=== PATIENT | male | born 1985 | race Caucasian/White ===

== ENCOUNTER → 2019-10-17 11:11 | Outpatient (CLI) | payer OTHER, SELFPAY ==
[2019-10-17 12:39] LABS: Cholesterol 219 mg/dL (200); Glucose 103 mg/dL (74-106); High Density Lipoprotein 33 mg/dL; Triglycerides 628 mg/dL
[2019-10-17 12:42] LABS: Hemoglobin A1c 5.4 % (3.8-5.6)
[2019-10-18 09:29] LABS: LDL, Direct 120295 82 mg/dL (0-99)
== END ==
PROVIDERS: PCP Family Medicine; Visit Provider Family Medicine
DX: R73.01 Impaired fasting glucose (principal); E78.1 Pure hyperglyceridemia
CPT/HCPCS: 36415; 80061; 82947; 83036; 83721

== ENCOUNTER → 2021-02-11 16:19 | Outpatient (CLI) | payer OTHER, SELFPAY ==
--- NOTE | 2021-02-11 16:27 | US_ITS ---
STUDY: SCROTUM ULTRASOUND REASON FOR EXAM: Male, 35 years old. Left testicular mass found on ESSENCE. TECHNIQUE: Ultrasound evaluation of the scrotum was performed with color Doppler and static randolph-scale imaging. COMPARISON: None. FINDINGS: RIGHT TESTICLE INTRATESTICULAR: There is a normal size of the right testicle. The right testicle measures 4.7 x 3.2 x 2.1 cm. There is a homogenous echotexture. There is normal arterial and normal venous vascularity. There is no demonstrated right testicular mass or cyst. EXTRATESTICULAR: The epididymis is normal in size. The epididymis head measures 0.8 x 1.1 x 1.3 cm. There is normal vascularity of the epididymis. There is no demonstrated epididymal cystic structure. There is a small hydrocele. There is no demonstrated varicocele. There is no demonstrated extratesticular mass or cyst. LEFT TESTICLE INTRATESTICULAR: There is a normal size of the left testicle. The left testicle measures 4.7 x 3.1 x 2.1 cm. There is a homogenous echotexture. There is normal arterial and normal venous vascularity. There is no demonstrated left testicular mass or cyst. EXTRATESTICULAR: The epididymis is normal in size. The epididymis head measures 0.9 x 1.3 x 0.8 cm. There is normal vascularity of the epididymis. There is a 4 mm epididymal head cyst. There is a small hydrocele. There are prominent extratesticular veins consistent with a varicocele. There is no demonstrated extratesticular mass or cyst. US/Testicular with Arterial Flow IMPRESSION: 1. Normal testicles. 2. Left epididymal head cyst. The right epididymis is unremarkable. 3. Left varicocele. This is thought to correlate with the palpable mass. 4. Small bilateral hydroceles. Electronically Signed: Lawrence Morel DO at 23:50 EDT Tel [phone], Service support ,
== END ==
PROVIDERS: PCP Family Medicine; Referring Provider Family Medicine; Visit Provider Family Medicine
DX: N50.89 Other specified disorders of the male genital organs (principal); N44.2 Benign cyst of testis; N43.3 Hydrocele, unspecified; I86.1 Scrotal varices
CPT/HCPCS: 76870; 93976

== ENCOUNTER → 2022-11-21 | Outpatient (CLI) | payer BC, SELFPAY ==
[2022-11-21 12:44] LABS: Hemoglobin A1c 6.3 % (3.8-5.6)
[2022-11-21 12:45] LABS: Microalbumin,Random Urine 20.4 mg/L (NO RANGE EST.); Microalbumin:Creatinine Ratio 10.7 mg/g CRE (<30 mg/g CRE)
[2022-11-21 13:24] LABS: ALB/GLOB Ratio 1.1 RATIO (0.9-2.4); AST(SGOT) 56 U/L (15-37); Alanine Aminotransfer ALT/SGPT 119 U/L (16-61); Albumin, Serum 3.8 g/dL (3.2-5.0); Alkaline Phosphatase 127 U/L (45-117); Anion Gap 6 (5-15); BUN 8 mg/dL (7-18); BUN/Creat Ratio 9.3 RATIO (10-20); Calcium,Total 9.2 mg/dL (8.5-10.1); Chloride 103 mmol/L (98-107); Cholesterol 228 mg/dL (200); Creatinine, Serum 0.86 mg/dL (0.70-1.30); EST Glomerular Filtration Rate 108 mL/min (>60); Est Glom Filt Rate - Afr Amer 130 mL/min (>60); Globulin 3.5 g/dL (2.2-4.2); Glucose 155 mg/dL (74-106); High Density Lipoprotein 34 mg/dL; Potassium 3.7 mmol/L (3.5-5.1); Protein, Total 7.3 g/dL (6.4-8.2); Sodium Level 136 mmol/L (136-145); Triglycerides 873 mg/dL
== END | disposition home or self-care (01) ==
PROVIDERS: PCP Family Medicine; Referring Provider Family Medicine; Visit Provider Family Medicine
DX: E11.9 Type 2 diabetes mellitus without complications (principal)
CPT/HCPCS: 36415; 80053; 80061; 82043; 82570; 83036

== ENCOUNTER → 2024-02-09 | Outpatient (CLI) | payer BC, SELFPAY ==
[2024-02-09 17:14] LABS: ALB/GLOB Ratio 1.4 RATIO (0.9-2.4); AST(SGOT) 86 U/L (15-37); Alanine Aminotransfer ALT/SGPT 147 U/L (16-61); Albumin, Serum 4.3 g/dL (3.2-5.0); Alkaline Phosphatase 100 U/L (45-117); Anion Gap 9 (5-15); BUN 12 mg/dL (7-18); BUN/Creat Ratio 15.2 RATIO (10-20); Calcium,Total 9.5 mg/dL (8.5-10.1); Chloride 103 mmol/L (98-107); Cholesterol 159 mg/dL (200); Creatinine, Serum 0.79 mg/dL (0.70-1.30); EST Glomerular Filtration Rate 117 mL/min (>60); Est Glom Filt Rate - Afr Amer 142 mL/min (>60); Globulin 3.1 g/dL (2.2-4.2); Glucose 114 mg/dL (74-106); High Density Lipoprotein 38 mg/dL; Potassium 3.6 mmol/L (3.5-5.1); Protein, Total 7.4 g/dL (6.4-8.2); Sodium Level 137 mmol/L (136-145); Triglycerides 338 mg/dL; Very Low Density Lipoprotein 68 mg/dL (5-40)
[2024-02-09 17:23] LABS: Hemoglobin A1c 7.1 % (3.8-5.6)
[2024-02-09 17:25] LABS: Microalbumin,Random Urine 20.3 mg/L (NO RANGE EST.); Microalbumin:Creatinine Ratio 14.9 mg/g CRE (<30 mg/g CRE)
== END | disposition home or self-care (01) ==
LOC: BFHLAB 14:18
PROVIDERS: PCP Family Medicine; Visit Provider Family Medicine
DX: Z00.00 Encounter for general adult medical examination without abnormal findings (principal); E11.9 Type 2 diabetes mellitus without complications
CPT/HCPCS: 36415; 80053; 80061; 82043; 82570; 83036

== ENCOUNTER → 2024-11-14 | Outpatient (CLI) | payer BC, SELFPAY ==
[2024-11-14 13:08] LABS: Hemoglobin A1c 9.8 % (<=5.6)
[2024-11-14 13:29] LABS: ALB/GLOB Ratio 1.7 RATIO (0.9-2.4); AST(SGOT) 138 U/L (<=37); Alanine Aminotransfer ALT/SGPT 195 U/L (<=46); Albumin, Serum 4.7 g/dL (3.5-5.0); Alkaline Phosphatase 100 U/L (40-129); Anion Gap 13 (5-15); BUN 9 mg/dL (4-19); BUN/Creat Ratio 11.6 RATIO (10-20); Calcium,Total 9.6 mg/dL (7.6-11.0); Carbon Dioxide 22.4 mmol/L (21.0-32.0); Chloride 100 mmol/L (98-108); Cholesterol 183 mg/dL (<=200); Creatinine, Serum 0.79 mg/dL (0.70-1.20); EST Glomerular Filtration Rate 117 (>60); Globulin 2.7 g/dL (2.2-4.2); Glucose 207 mg/dL (70-99); High Density Lipoprotein 31 mg/dL; Low Density Lipoprotein Calc. 46 mg/dL; Potassium 4.1 mmol/L (3.3-5.1); Protein, Total 7.4 g/dL (5.9-8.4); Sodium Level 136 mmol/L (133-145); Total Bilirubin 0.51 mg/dL (0.00-1.30); Triglycerides 531 mg/dL; Very Low Density Lipoprotein 106 mg/dL (5-40); cholesterol:hdl ratio screen 5.85
[2024-11-14 13:47] LABS: Microalbumin,Random Urine 68.3 mg/L (NO RANGE EST.); Microalbumin:Creatinine Ratio 43.8 mg/g CRE
[2024-11-15 12:08] LABS: C-Peptide 5.6 ng/mL (1.1-4.4)
== END | disposition home or self-care (01) ==
LOC: BFHLAB 09:33
PROVIDERS: PCP Family Medicine; Referring Provider Family Medicine; Visit Provider Family Medicine
DX: I10 Essential (primary) hypertension (principal); E11.65 Type 2 diabetes mellitus with hyperglycemia; R74.8 Abnormal levels of other serum enzymes
CPT/HCPCS: 36415; 80053; 80061; 82043; 82570; 83036; 84681

== ENCOUNTER 2024-11-30 18:14 | Emergency (ER) | payer BC, SELFPAY ==
[2024-11-30 18:14] VITALS: BP 162/99; PULSE 103; RESP 18; TEMP 36.4; O2SAT 98; BMI 37.1
--- NOTE | 2024-11-30 18:28 | EX.ED.UPPERE ---
HPI <CARITO Colón - Last Filed: 11/30/24 19:25> History of Present Illness Chief Complaint: Upper Extremity Injury Narrative Narrative: 38-year-old [id number] male presents with a right arm injury. He was installing evelia earlier and felt a pop in his right proximal forearm and has had pain in this area since then. No weakness or numbness or tingling. No direct trauma. PFSH <CARITO Colón - Last Filed: 11/30/24 19:25> PFSH Home Medications ?Medication ?Instructions ?Recorded ?Last Taken ?Type naproxen 500 mg tablet (Naprosyn) 500 mg PO BID PRN pain #20 tabs 11/30/24 Unknown Rx Allergy/AdvReac Type Severity Reaction Status Date / Time No Known Allergies Allergy Verified 11/30/24 18:15 Surgical History (Updated 11/30/24 @ 18:44 by Vicente Chua) History of tonsillectomy Social History Smoking Status: Former smoker ROS <CARITO Colón - Last Filed: 11/30/24 19:25> ROS ED ROS Narrative Neuro: Negative for motor/sensory dysfunction. Skin: Negative for rash, abscess, or wound. Musc: Positive for right forearm pain, swelling. EXAM <CARITO Colón - Last Filed: 11/30/24 19:25> Physical Exam Narrative Exam Narrative: CONST: Patient sitting in no acute distress. EYES: Normal inspection. NECK: Normal inspection. RESP: No respiratory distress, CTAB. CVS: Regular rate and rhythm, no murmur, no gallop. SKIN: Color normal, no rash, warm, dry, intact. EXTREMITIES: Normal appearance of right upper extremity. Tender over the proximal forearm musculature. There is no bruising or deformity. No bony tenderness of the entire right upper extremity. Full range of motion. Some pain with elbow movement. Able to pronate and supinate normally. Normal motor and sensory function in axillary, median, radial, ulnar distributions. 2+ radial pulse and brisk cap refill. NEURO: Alert and answering questions appropriately. PSYCH: Normal affect. Const Vital Signs: 11/30/24 18:14 Temperature 97.5 F L Temperature Source Oral Pulse Rate 103 H Respiratory Rate 18 Blood Pressure 162/99 H Blood Pressure Mean 120 Pulse Ox 98 MDM <CARITO Colón - Last Filed: 11/30/24 19:25> [facility] Narrative Medical decision making narrative: Differential: Muscle tendon strain, fracture I have personally performed a face to face assessment of the patient and have reviewed the ROMINA Note. I performed a substantive portion of the visit including all aspects of the following. My frias findings include: History is [patient presents with pain to his right forearm that occurred today while working installing a floor. Pushed against the wall with the back part of his hand and felt a pop in his proximal medial forearm. Has pain with flexion at the elbow. He is left-hand dominant. No significant medical history.] Exam is [HEENT-PERRLA, EOMI. Cranial nerves II through XII grossly intact. TMs clear. Mucous membranes moist. No adenopathy. Cardiovascular-regular rate and rhythm without murmur or ectopy Lungs-clear to auscultation, chest wall stable without crepitus or subcu emphysema Abdomen-normoactive bowel sounds, soft, nontender, no rebound or rigidity, no peritoneal signs. Extremities-intact ?4. Right upper extremity-patient has tenderness palpation over proximal forearm medially over the area of the insertion of the flexor carpi radialis and the flexor digitorum superficialis as well as the flexor carpi all naris. No significant discomfort with pronation and supination. No pain over the lateral epicondyle or radial head. Neurovascular intact distally.] Medical Decison Making [x-ray of right elbow unremarkable. Will place in a sling and refer to Ortho for follow-up. Suspect likely muscular or tendon injury.] Other additions or changes: [None] <Dr. Isauro Restrepo, - Last Filed: 11/30/24 18:44> [facility] Narrative Medical decision making narrative: I have personally performed a face to face assessment of the patient and have reviewed the ROMINA Note. I performed a substantive portion of the visit including all aspects of the following. My frias findings include: History is [patient presents with pain to his right forearm that occurred today while working installing a floor. Pushed against the wall with the back part of his hand and felt a pop in his proximal medial forearm. Has pain with flexion at the elbow. He is left-hand dominant. No significant medical history.] Exam is [HEENT-PERRLA, EOMI. Cranial nerves II through XII grossly intact. TMs clear. Mucous membranes moist. No adenopathy. Cardiovascular-regular rate and rhythm without murmur or ectopy Lungs-clear to auscultation, chest wall stable without crepitus or subcu emphysema Abdomen-normoactive bowel sounds, soft, nontender, no rebound or rigidity, no peritoneal signs. Extremities-intact ?4. Right upper extremity-patient has tenderness palpation over proximal forearm medially over the area of the insertion of the flexor carpi radialis and the flexor digitorum superficialis as well as the flexor carpi all naris. No significant discomfort with pronation and supination. No pain over the lateral epicondyle or radial head. Neurovascular intact distally.] Medical Decison Making [x-ray of right elbow unremarkable. Will place in a sling and refer to Ortho for follow-up. Suspect likely muscular or tendon injury.] Other additions or changes: [None] Radiography Diagnostic Testing: Three-view x-ray of the right elbow obtained interpreted by myself as no evidence of fracture or dislocation Discharge Plan Triage Chief Complaint: Upper Extremity Injury ED Midlevel Provider: Nicolette Choe ED Provider: Isauro Restrepo Dx/Rx/DC Orders Clinical Impression: Pain in right forearm, Forearm strain Instructions: ED Muscle Strain, Extremity Prescriptions: New naproxen [Naprosyn] 500 mg tablet 500 mg PO BID PRN (Reason: pain) Qty: 20 0RF Stand Alone Forms: Work / School Excuse Primary Care Provider: Dionisio Washington Referrals: Dionisio Washington DO [Primary Care Provider] - Anup Cavanaugh DO [Med Staff - Active Staff] - Activity Restrictions/Additional Instructions: I suspect this is a muscle or tendon strain. You can take acetaminophen every 6 hours and the prescribed naproxen twice daily. If the area in 20 minute sessions throughout the day. You can use the sling but make sure you take your arm out and move it through full range of motion several times a day to avoid stiffness. Follow-up with the orthopedic doctor as needed. Print Language: Greenlandic Disposition Disposition: Home, Self Care Discharge Date/Time: 11/30/24 19:11
--- NOTE | 2024-11-30 18:35 | RAD_ITS ---
PROCEDURE: ELBOW MIN 3 VIEWS 11/30/2024 REASON FOR EXAM: PAIN TECHNIQUE: ELBOW MIN 3 VIEWS COMPARISON: None FINDINGS: No traumatic malalignment. There is a tiny mineralization adjacent to the radial head on the frontal and oblique views no significant joint effusion within the limits of patient positioning on the lateral view. Soft tissues are unremarkable. RAD/Elbow min 3 Views IMPRESSION: Tiny mineralization adjacent to the radial head is nonspecific, possibly sequel a of remote injury and which could be intra-articular. Reading Location: [facility]
[2024-11-30 18:49] VITALS: BP 161/106; PULSE 98; RESP 12; TEMP 36.7; O2SAT 100
--- OUTSIDE RECORDS SUMMARY | 2024-11-30 19:00 | XMS RPT_ITS | CCD ---
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 Dionisio Washington DO Primary Care Provider Dr. Dionisio Washington DO Attending Provider [phone] Dr. Dionisio Washington DO Referring Provider [phone] Dionisio Washington Referring Unavailable Dionisio Washington Attending Unavailable Dionisio Washington Primary Care Unavailable Dionisio Washington Attending Unavailable Dionisio Washington Primary Care Unavailable Problems Problem Classification Problem Date Documented Da te Episodic/Chronic Essential hypertension (1 source) Essential (primary) hypertension; Translations: [Essential (primary) hypertension] Onset: 11-19-2024 Chronic Results Test Name Value Interpretation Reference Range Facility [id number] 11-18-2024 [facility]. COMMENT Normal . [facility] Comment on above: Order Comment: SER/R F [id number] ISLET CELL ANTIBODY Result Comment: Test Ordered: [id number] Antipancreatic Islet Cells Antipancreatic Islet Cells Negative Reference Range: Neg:<1:1 Performed at: - [facility] [id number] Fruit Inspector: Pratibha Fox MD, Phone: [phone] Performed at: - [facility] [address] [id number] Fruit Inspector: Paulo Herman PhD, Phone: [phone] Performed By: #### L 3100.7750, L502.0250, L500.4050, L500.4100, L501.9985, L3410.9992 #### [facility] [address] [place], [place], [id number] C-Peptideon 11-15-2024 C PEPTIDE 5.6 ng/mL High 1.1-4.4 [facility] Comment on above: Result Comment: C-Pe ptide reference interval is for fasting patients. Performed at: [facility] [id number] Fruit Inspector: Paulo Herman PhD, Phone: [phone] Performed By: #### L 3100.7750, L502.0250, L500.4050, L500.4100, L501.9985, L3410.9992 #### [facility] [address] [place], [address] Anion gap in Serum or Plasma Ordered By: Dionisio Washington on 11-14-2024 Anion gap [Moles/Vol] 13 mmol/L 5-15 [facility] BUN/creatinine ratioOrdered By: Dionisio Washington on 11-14-2024 Urea nitrogen/Creatinine [Mass ratio] 11.6 mg/mg 10-20 [facility] Bilirubin, totalOrdered By: Dionisio Washington on 11-14-2024 Bilirubin [Mass/Vol] 0.51 mg/dL 0.00-1.30 [facility] Calculated very low density lipoprotein (VLDL) cholesterol measurementOrdered By: Dionisio Washington on 11-14-2024 Calculated very low density lipoprotein (VLDL) cholesterol measurement 106 mg/dL High 5-40 [facility] Carbon dioxide, total [Moles /volume] in Central venous bloodOrdered By: Dionisio Washington on 11-14-2024 CO2 [Moles/Vol] 22.4 mmol/L 21.0-32.0 [facility] Chloride assayOrdered By: Delicia Washington on 11-14-2024 Chloride [Moles/Vol] 100 mmol/L 98-108 [facility] Comprehensive Metabolic Prof ilon 11-14-2024 Albumin [Mass/Vol] 4.7 g/dL Normal 3.5-5.0 [facility] Comment on above: Performed By: #### L 3100.7750, L502.0250, L500.4050, L500.4100, L501.9985, L3410.9992 #### [facility] [address] [place], [address] Albumin/Globulin [Mass ratio] 1.7 {ratio} Normal 0.9-2.4 [facility] Comment on above: Performed By: #### L 3100.7750, L502.0250, L500.4050, L500.4100, L501.9985, L3410.9992 #### [facility] [address] [place], [address] ALK PHOS 100 U/L Normal 40-129 [facility] Comment on above: Performed By: #### L 3100.7750, L502.0250, L500.4050, L500.4100, L501.9985, L3410.9992 #### [facility] [address] [place], [address] ALT [Catalytic activity/Vol] 195 U/L High <=46 [facility] Comment on above: Performed By: #### L 3100.7750, L502.0250, L500.4050, L500.4100, L501.9985, L3410.9992 #### [facility] [address] [place], [address] AST [Catalytic activity/Vol] 138 U/L High <=37 [facility] Comment on above: Performed By: #### L 3100.7750, L502.0250, L500.4050, L500.4100, L501.9985, L3410.9992 #### [facility] [address] [place], [address] Bilirubin [Mass/Vol] 0.51 mg/dL Normal 0.00-1.30 [facility] Comment on above: Performed By: #### L 3100.7750, L502.0250, L500.4050, L500.4100, L501.9985, L3410.9992 #### [facility] [address] [place], [address] BUN/CRE 11.6 RATIO Normal 10-20 [facility] Comment on above: Performed By: #### L 3100.7750, L502.0250, L500.4050, L500.4100, L501.9985, L3410.9992 #### [facility] [address] [place], [address] Calcium [Mass/Vol] 9.6 mg/dL Normal 7.6-11.0 [facility] Comment on above: Performed By: #### L 3100.7750, L502.0250, L500.4050, L500.4100, L501.9985, L3410.9992 #### [facility] [address] [place], [address] Chloride [Moles/Vol] 100 mmol/L Normal 98-108 [facility] Comment on above: Performed By: #### L 3100.7750, L502.0250, L500.4050, L500.4100, L501.9985, L3410.9992 #### [facility] [address] [place], [address] CO2 [Moles/Vol] 22.4 mmol/L Normal 21.0-32.0 [facility] Comment on above: Performed By: #### L 3100.7750, L502.0250, L500.4050, L500.4100, L501.9985, L3410.9992 #### [facility] [address] [place], [address] Creatinine [Mass/Vol] 0.79 mg/dL Normal 0.70-1.20 [facility] Comment on above: Performed By: #### L 3100.7750, L502.0250, L500.4050, L500.4100, L501.9985, L3410.9992 #### [facility] [address] [place], [place], [phone] (286) GAP 13 Normal 5-15 [facility] Comment on above: Performed By: #### L 3100.7750, L502.0250, L500.4050, L500.4100, L501.9985, L3410.9992 #### [facility] [address] [place], [place], [phone] (017) GFR/1.73 sq M.predicted among non-blacks MDRD (S/P/Bld) [Vol rate/Area] 117 mL/min/{1.73_m2} Normal >60 [facility] Comment on above: Result Comment: mL/m in/1.73m2 CKD-EPI Creatinine Equation (2020) Performed By: #### L 3100.7750, L502.0250, L500.4050, L500.4100, L501.9985, L3410.9992 #### [facility] [address] [place], [place], [id number] (082) Globulin (S) [Mass/Vol] 2.7 g/dL Normal 2.2-4.2 [facility] Comment on above: Performed By: #### L 3100.7750, L502.0250, L500.4050, L500.4100, L501.9985, L3410.9992 #### [facility] [address] [place], [place], [phone] Glucose [Mass/Vol] 207 mg/dL High 70-99 [facility] Comment on above: Performed By: #### L 3100.7750, L502.0250, L500.4050, L500.4100, L501.9985, L3410.9992 #### [facility] [address] [place], [address] Potassium [Moles/Vol] 4.1 mmol/L Normal 3.3-5.1 [facility] Comment on above: Performed By: #### L 3100.7750, L502.0250, L500.4050, L500.4100, L501.9985, L3410.9992 #### [facility] [address] [place], [address] Sodium [Moles/Vol] 136 mmol/L Normal 133-145 [facility] Comment on above: Performed By: #### L 3100.7750, L502.0250, L500.4050, L500.4100, L501.9985, L3410.9992 #### [facility] [address] [place], [address] T PROT 7.4 g/dL Normal 5.9-8.4 [facility] Comment on above: Performed By: #### L 3100.7750, L502.0250, L500.4050, L500.4100, L501.9985, L3410.9992 #### [facility] [address] [place], [address] Urea nitrogen [Mass/Vol] 9 mg/dL Normal 4-19 [facility] Comment on above: Performed By: #### L 3100.7750, L502.0250, L500.4050, L500.4100, L501.9985, L3410.9992 #### [facility] [address] [place], [address] Glomerular filtration rate ( GFR) estimation/1.73 sq m using serum, plasma, or whole bOrdered By: Dionisio Washington on 11-14-2024 GFR/1.73 sq M.predicted among non-blacks MDRD (S/P/Bld) [Vol rate/Area] 117 mL/min/{1.73_m2} >60 [facility] Comment on above: mL/min/1.73m2 CKD-EP I Creatinine Equation (2020) Hemoglobin A1con 11-14-2024 HbA1c (Bld) [Mass fraction] 9.8 % High <=5.6 [facility] Comment on above: Result Comment: Norm al < 5.7 % Prediabetic 5.7 - 6.4 % Diabetic >or= 6.5 % Please note range changes. Performed By: #### L 3100.7750, L502.0250, L500.4050, L500.4100, L501.9985, L3410.9992 #### [facility] [address] [place], [place], [phone] Hemoglobin A1c percentageOrd ered By: Dionisio Washington on 11-14-2024 HbA1c (Bld) [Mass fraction] 9.8 % High <5.7 [facility] Comment on above: Normal < 5.7 % Predi abetic 5.7 - 6.4 % Diabetic >or= 6.5 % Please note range changes. LDL calc ser/plasOrdered By: Dionisio Washington on 11-14-2024 Cholesterol in LDL [Mass/Vol] 46 mg/dL [facility] Comment on above: Ekdlqgvgfh=560-492 m g/dL & Higher Qrxa=897 mg/dL or greater Laboratory - Chemistry and C hemistry - challengeOrdered By: Dionisio Washington on 11-14-2024 AST [Catalytic activity/Vol] 138 U/L High <38 [facility] Lipid Profileon 11-14-2024 CHOL:HDL 5.85 Normal [facility] Comment on above: Performed By: #### L 3100.7750, L502.0250, L500.4050, L500.4100, L501.9985, L3410.9992 #### [facility] [address] [place], [place], [id number] Cholesterol [Mass/Vol] 183 mg/dL Normal <=200 [facility] Comment on above: Result Comment: Chol esterol level, Desirable <200 mg/dL Borderline high cholesterol 200-239 mg/dL High cholesterol >=240 mg/dL Recommendations of the NCEP Adult Treatment Panel for the following risk-cutoff thresholds for the [place] population. Performed By: #### L 3100.7750, L502.0250, L500.4050, L500.4100, L501.9985, L3410.9992 #### [facility] [address] [place], [address] Cholesterol in HDL [Mass/Vol] 31 mg/dL Low [facility] Comment on above: Result Comment: Marisa onal Cholesterol Education Program (NCEP) guidelines: <40 mg/dL: Low HDL-cholesterol (major risk factor for CHD) >= 60 mg/dL: High HDL-cholesterol (negative risk factor for CHD) HDL-cholesterol is affected by a number of factors, e.g. smoking, exercise, hormones, sex and age. Performed By: #### L 3100.7750, L502.0250, L500.4050, L500.4100, L501.9985, L3410.9992 #### [facility] [address] [place], [address] Cholesterol in LDL [Mass/Vol] 46 mg/dL Normal [facility] Comment on above: Result Comment: Bord hlqakf=025-745 mg/dL Higher Ndog=660 mg/dL or greater Performed By: #### L 3100.7750, L502.0250, L500.4050, L500.4100, L501.9985, L3410.9992 #### [facility] [address] [place], [address] Cholesterol in VLDL [Mass/Vol] 106 mg/dL High 5-40 [facility] Comment on above: Performed By: #### L 3100.7750, L502.0250, L500.4050, L500.4100, L501.9985, L3410.9992 #### [facility] [address] [place], [place], [id number] Triglyceride [Mass/Vol] 531 mg/dL High [facility] Comment on above: Result Comment: The drugs N-Acetylcysteine and Metamizole may falsely depress this assay. Normal range: <150 mg/dL Borderline High: 150-199 mg/dL High: 200-499 mg/dL Very High: >500 mg/dL Performed By: #### L 3100.7750, L502.0250, L500.4050, L500.4100, L501.9985, L3410.9992 #### [facility] [address] [place], [place], [id number] Microalb:Creat Ratio,Random URon 11-14-2024 MALB:CREAT 43.8 mg/g CRE Normal [facility] Comment on above: Performed By: #### L 3100.7750, L502.0250, L500.4050, L500.4100, L501.9985, L3410.9992 #### [facility] [address] [place], [place], [phone] MICROALBUMIN,UR 68.3 mg/L Normal NO RANGE EST. [facility] Comment on above: Performed By: #### L 3100.7750, L502.0250, L500.4050, L500.4100, L501.9985, L3410.9992 #### [facility] [address] [place], [place], [phone] Potassium measurement (mass/ volume)Ordered By: Dionisio Washington on 11-14-2024 Potassium (Unsp spec) [Mass/Vol] 4.1 mmol/L 3.3-5.1 [facility] Random urine creatinine dylan urement (mass/volume)Ordered By: Dionisio Washington on 11-14-2024 Creatinine Unsp time (U) [Mass/Vol] 156.00 mg/dL 39.00-259.00 [facility] Screening total cholesterol/ high density lipoprotein (HDL) cholesterol ratioOrdered By: Dionisio Washington on 11-14-2024 Cholesterol.total/Mariela sterol in HDL [Mass ratio] 5.85 {ratio} [facility] Serum creatinine measurement (mass/volume)Ordered By: Dionisio Washington on 11-14-2024 Creatinine [Mass/Vol] 0.79 mg/dL 0.70-1.20 [facility] Serum globulin measurementOr dered By: Dionisio Washington on 11-14-2024 Globulin (S) [Mass/Vol] 2.7 g/dL 2.2-4.2 [facility] Serum glucose measurement (m ass/volume)Ordered By: Dionisio Washington on 11-14-2024 Glucose [Mass/Vol] 207 mg/dL High 70-99 [facility] Serum or plasma alanine bailey otransferase (ALT) measurementOrdered By: Dionisio Washington on 11-14-2024 ALT [Catalytic activity/Vol] 195 U/L High <47 [facility] Serum or plasma albumin dylan urement (mass/volume)Ordered By: Dionisio Washington on 11-14-2024 Albumin [Mass/Vol] 4.7 g/dL 3.5-5.0 [facility] Serum or plasma albumin/glob ulin mass ratioOrdered By: Dionisio Washington on 11-14-2024 Albumin/Globulin [Mass ratio] 1.7 {ratio} 0.9-2.4 [facility] Serum or plasma alkaline joseph sphatase measurementOrdered By: Dionisio Washington on 11-14-2024 ALP [Catalytic activity/Vol] 100 U/L 40-129 [facility] Serum or plasma calcium dylan urement (mass/volume)Ordered By: Dionisio Washington on 11-14-2024 Calcium [Mass/Vol] 9.6 mg/dL 7.6-11.0 [facility] Serum or plasma cholesterol in HDL measurement (mass/volume)Ordered By: Dionisio Washington on 11-14-2024 Cholesterol in HDL [Mass/Vol] 31 mg/dL Low >40 [facility] Comment on above: National Cholesterol Education Program (NCEP) guidelines:<40 mg/dL: Low HDL-cholesterol (major risk factor for CHD)>= 60 mg/dL: High HDL-cholesterol (negative risk factor for CHD)HDL-cholesterol is affected by a number of factors, e.g. smoking, exercise, hormones, sex and age. Serum or plasma cholesterol measurement (mass/volume)Ordered By: Dionisio Washington on 11-14-2024 Cholesterol [Mass/Vol] 183 mg/dL <201 [facility] Comment on above: Cholesterol level, D esirable <200 mg/dLBorderline high cholesterol 200-239 mg/dLHigh cholesterol >=240 mg/dLRecommendations of the NCEP Adult Treatment Panel for the following risk-cutoff thresholds for the [place] population. Serum or plasma urea nitroge n measurement (mass/volume)Ordered By: Dionisio Washington on 11-14-2024 Urea nitrogen [Mass/Vol] 9 mg/dL 4-19 [facility] Sodium levelOrdered By: Dionisio Washington on 11-14-2024 Sodium [Moles/Vol] 136 mmol/L 133-145 [facility] Total proteinOrdered By: Jessika Washington on 11-14-2024 Protein [Mass/Vol] 7.4 g/dL 5.9-8.4 [facility] Triglycerides measurementOrd ered By: Dionisio Washington on 11-14-2024 Triglyceride [Mass/Vol] 531 mg/dL High <199 [facility] Comment on above: The drugs N-Acetylcy steine and Metamizole may falsely depress this assay. Normal range: <150 mg/dLBorderline High: 150-199 mg/dLHigh: 200-499 mg/dLVery High: >500 mg/dL Urine albumin measurement [facility] detection limit of 20 mg/L or less (mass/volume)Ordered By: Dinoisio Washington on 11-14-2024 Albumin DL <= 20 mg/L (U) [Mass/Vol] 68.3 mg/L NO RANGE EST. [facility] Comprehensive Metabolic Prof ilon 02-09-2024 Albumin [Mass/Vol] 4.3 g/dL Normal 3.2-5.0 [facility] Comment on above: Performed By: #### L 502.0250, L500.4050, L501.9985, L500.4100 #### [facility] [place], [address] Albumin/Globulin [Mass ratio] 1.4 {ratio} Normal 0.9-2.4 [facility] Comment on above: Performed By: #### L 502.0250, L500.4050, L501.9985, L500.4100 #### [facility] [address] [place], [address] ALK P 100 U/L Normal 45-117 [facility] Comment on above: Performed By: #### L 502.0250, L500.4050, L501.9985, L500.4100 #### [facility] [address] [place], [address] ALT [Catalytic activity/Vol] 147 U/L High 16-61 [facility] Comment on above: Performed By: #### L 502.0250, L500.4050, L501.9985, L500.4100 #### [facility] [address] [place], [address] AST [Catalytic activity/Vol] 86 U/L High 15-37 [facility] Comment on above: Performed By: #### L 502.0250, L500.4050, L501.9985, L500.4100 #### [facility] [address] [place], [address] Bilirubin [Mass/Vol] 0.80 mg/dL Normal 0.20-1.00 [facility] Comment on above: Result Comment: For patients on eltrombopag therapy, use of Dimension [place] TBIL is not recommended. Performed By: #### L 502.0250, L500.4050, L501.9985, L500.4100 #### [facility] [address] [place], [address] BUN/CRE 15.2 RATIO Normal 10-20 [facility] Comment on above: Performed By: #### L 502.0250, L500.4050, L501.9985, L500.4100 #### [facility] [address] [place], [address] CA,Total 9.5 mg/dL Normal 8.5-10.1 [facility] Comment on above: Performed By: #### L 502.0250, L500.4050, L501.9985, L500.4100 #### [facility] [address] [place], [address] Chloride [Moles/Vol] 103 mmol/L Normal 98-107 [facility] Comment on above: Performed By: #### L 502.0250, L500.4050, L501.9985, L500.4100 #### [facility] [address] [place], [address] CO2 [Moles/Vol] 25.0 mmol/L Normal 21.0-32.0 [facility] Comment on above: Performed By: #### L 502.0250, L500.4050, L501.9985, L500.4100 #### [facility] [address] [place], [address] Creatinine [Mass/Vol] 0.79 mg/dL Normal 0.70-1.30 [facility] Comment on above: Result Comment: The validity of the calculated GFR GFRAA in patients over 70 years has not been determined. Clinical correlation is essential. Performed By: #### L 502.0250, L500.4050, L501.9985, L500.4100 #### [facility] [address] [place], [address] EST GFR - AA 142 mL/min Normal >60 [facility] Comment on above: Result Comment: Afri can [place] GFR Calc Performed By: #### L 502.0250, L500.4050, L501.9985, L500.4100 #### [facility] [address] [place], [address] GAP 9 Normal 5-15 [facility] Comment on above: Performed By: #### L 502.0250, L500.4050, L501.9985, L500.4100 #### [facility] [address] [place], [address] GFR/1.73 sq M.predicted among non-blacks MDRD (S/P/Bld) [Vol rate/Area] 117 mL/min/{1.73_m2} Normal >60 [facility] Comment on above: Result Comment: Non- GFR Calc Performed By: #### L 502.0250, L500.4050, L501.9985, L500.4100 #### [facility] [address] [place], [address] Globulin (S) [Mass/Vol] 3.1 g/dL Normal 2.2-4.2 [facility] Comment on above: Performed By: #### L 502.0250, L500.4050, L501.9985, L500.4100 #### [facility] [address] [place], [address] Glucose [Mass/Vol] 114 mg/dL High 74-106 [facility] Comment on above: Result Comment: Fast ing Glucose result from 100 to 125 mg/dL suggests IMPAIRED HOMEOSTASIS per A.D.A. criteria. Performed By: #### L 502.0250, L500.4050, L501.9985, L500.4100 #### [facility] [address] [place], [address] Potassium [Moles/Vol] 3.6 mmol/L Normal 3.5-5.1 [facility] Comment on above: Performed By: #### L 502.0250, L500.4050, L501.9985, L500.4100 #### [facility] [address] [place], [address] Sodium [Moles/Vol] 137 mmol/L Normal 136-145 [facility] Comment on above: Performed By: #### L 502.0250, L500.4050, L501.9985, L500.4100 #### [facility] [address] [place], [address] T PROT 7.4 g/dL Normal 6.4-8.2 [facility] Comment on above: Performed By: #### L 502.0250, L500.4050, L501.9985, L500.4100 #### [facility] [address] [place], [address] Urea nitrogen [Mass/Vol] 12 mg/dL Normal 7-18 [facility] Comment on above: Performed By: #### L 502.0250, L500.4050, L501.9985, L500.4100 #### [facility] [address] [place], [address] Hemoglobin A1con 02-09-2024 HbA1c (Bld) [Mass fraction] 7.1 % High 3.8-5.6 [facility] Comment on above: Result Comment: Norm al < 5.7 % Prediabetic 5.7 - 6.4 % Diabetic >or= 6.5 % Please note range changes. Performed By: #### L 502.0250, L500.4050, L501.9985, L500.4100 #### [facility] [address] [place], [address] Lipid Profileon 02-09-2024 Cholesterol [Mass/Vol] 159 mg/dL Normal 200 [facility] Comment on above: Result Comment: <200 mg/dL Desirable 200-240 mg/dL Borderline >240 mg/dL High Risk Performed By: #### L 502.0250, L500.4050, L501.9985, L500.4100 #### [facility] [address] [place], [address] Cholesterol in HDL [Mass/Vol] 38 mg/dL Low [facility] Comment on above: Result Comment: The drugs N-Acetylcysteine and Metamizole may falsely depress this assay. Reference Range HDL <40 mg/dL Low HDL Cholesterol HDL >or= 60 mg/dL High HDL Cholesterol Performed By: #### L 502.0250, L500.4050, L501.9985, L500.4100 #### [facility] [address] [place], [address] Cholesterol in LDL [Mass/Vol] 53 mg/dL Normal 0-130 [facility] Comment on above: Performed By: #### L 502.0250, L500.4050, L501.9985, L500.4100 #### [facility] [facility] [address] [place], [address] Cholesterol in VLDL [Mass/Vol] 68 mg/dL High 5-40 [facility] Comment on above: Performed By: #### L 502.0250, L500.4050, L501.9985, L500.4100 #### [facility] [address] [place], [address] Triglyceride [Mass/Vol] 338 mg/dL High [facility] Comment on above: Result Comment: The drugs N-Acetylcysteine and Metamizole may falsely depress this assay. Serum Triglycerides Reference Interval Normal <150 mg/dL Borderline high 150 - 199 mg/dL High 200 - 499 mg/dL Very High > or = 500 mg/dL Performed By: #### L 502.0250, L500.4050, L501.9985, L500.4100 #### [facility] [address] [place], [address] Microalb:Creat Ratio,Random URon 02-09-2024 Creatinine [Mass/Vol] 136.00 mg/dL Normal NO RANGE EST . [facility] Comment on above: Performed By: #### L 502.0250, L500.4050, L501.9985, L500.4100 #### [facility] [address] [place], [address] MALB:CRE 14.9 mg/g CRE Normal <30 mg/g CRE [facility] Comment on above: Performed By: #### L 502.0250, L500.4050, L501.9985, L500.4100 #### [facility] [address] [place], [address] MICROALBUMIN,UR 20.3 mg/L Normal NO RANGE EST. [facility] Comment on above: Performed By: #### L 502.0250, L500.4050, L501.9985, L500.4100 #### [facility] [address] [place], [address] Basophil percentageOrdered B y: Dionisio Washington on 11-21-2022 Bilirubin [Mass/Vol] 0.30 mg/dL 0.20-1.00 [facility] Comment on above: For patients on eltr ombopag therapy, use of Dimension [place] TBIL is not recommended. Chloride [Moles/Vol] 103 mmol/L 98-107 [facility] Cholesterol [Mass/Vol] 228 mg/dL <200 [facility] Comment on above: <200 mg/dL Desirable 200-240 mg/dL Borderline >240 mg/dL High Risk Glucose [Mass/Vol] 155 mg/dL 74-106 [facility] Comment on above: Fasting Glucose resu lt greater than or equal to 126 mg/dL suggests DIABETES MELLITUS per A.D.A. criteria. Potassium [Moles/Vol] 3.7 mmol/L 3.5-5.1 [facility] Protein [Mass/Vol] 7.3 g/dL 6.4-8.2 [facility] Sodium [Moles/Vol] 136 mmol/L 136-145 [facility] Triglyceride [Mass/Vol] 873 mg/dL <199 [facility] Comment on above: The drugs N-Acetylcy steine and Metamizole may falsely depress this assay. TRIGLYCERIDE IS GREATER THAN 400 mg/dL. LDL RESULT IS INVALID AND WILL NOT BE REPORTED.Serum Triglycerides Reference Interval Normal <150 mg/dL Borderline high 150 - 199 mg/dL High 200 - 499 mg/dL Very High > or = 500 mg/dL Laboratory - Chemistry and C hemistry - challengeOrdered By: Dionisio Washington on 11-21-2022 ALP [Catalytic activity/Vol] 127 U/L 45-117 [facility] ALT [Catalytic activity/Vol] 119 U/L 16-61 [facility] CO2 [Moles/Vol] 27.0 mmol/L 21.0-32.0 [facility] Globulin (S) [Mass/Vol] 3.5 g/dL 2.2-4.2 [facility] Urea nitrogen/Creatinine [Mass ratio] 9.3 mg/mg 10-20 [facility] No Panel InformationOrdered By: Dionisio Washington on 11-21-2022 Estimated GFR (MDRD) Amer 130 mL/min >60 [facility] Comment on above: GFR Calc Estimated GFR (MDRD) Non-Af Amer 108 mL/min >60 [facility] Comment on above: Non- GFR Calc Urine Microalbumin/Creatinine Ratio 10.7 mg/g CRE <30 [facility] Serum or plasma albumin dylan urement (mass/volume)Ordered By: Dionisio Washington on 11-21-2022 Albumin [Mass/Vol] 3.8 g/dL 3.2-5.0 [facility] Serum or plasma albumin/glob ulin mass ratioOrdered By: Dionisio Washington on 11-21-2022 Albumin/Globulin [Mass ratio] 1.1 {ratio} 0.9-2.4 [facility] Serum or plasma calcium dylan urement (mass/volume)Ordered By: Dionisio Washington on 11-21-2022 Calcium [Mass/Vol] 9.2 mg/dL 8.5-10.1 [facility] Serum or plasma cholesterol in HDL measurement (mass/volume)Ordered By: Dionisio Washington on 11-21-2022 Cholesterol in HDL [Mass/Vol] 34 mg/dL >40 [facility] Comment on above: The drugs N-Acetylcy steine and Metamizole may falsely depress this assay. Reference Range HDL <40 mg/dL Low HDL Cholesterol HDL >or= 60 mg/dL High HDL Cholesterol Serum or plasma cholesterol in VLDL measurement (mass/volume)Ordered By: Dionisio Washington on 11-21-2022 Cholesterol in VLDL [Mass/Vol] [facility] Comment on above: Test not performed Serum or plasma creatinine m easurement (mass/volume)Ordered By: Dionisio Washington on 11-21-2022 Creatinine [Mass/Vol] 0.86 mg/dL 0.70-1.30 [facility] Comment on above: The validity of the calculated GFR & GFRAA in patients over 70 years has not been determined. Clinical correlation is essential. Serum or plasma low density lipoprotein (LDL) cholesterol measurement (mass/volume)Ordered By: Dionisio Washington on 11-21-2022 Cholesterol in LDL [Mass/Vol] [facility] Comment on above: Test not performed Serum or plasma urea nitroge n measurement (mass/volume)Ordered By: Dionisio Washington on 11-21-2022 Urea nitrogen [Mass/Vol] 8 mg/dL 7-18 [facility] Thin prep Papanicolaou smear with manual screeningOrdered By: Dionisio Washington on 11-21-2022 Thin prep Papanicolaou smear with manual screening 56 U/L 15-37 [facility] Thin prep Papanicolaou smear with manual screening 6 5-15 [facility] Thin prep Papanicolaou smear with manual screening 20.4 mg/L NO RANGE EST. [facility] Urine creatinine measurement (mass/volume)Ordered By: Dionisio Washington on 11-21-2022 Creatinine (U) [Mass/Vol] 190.00 mg/dL NO RANGE EST. [facility] Whole blood hemoglobin A1c/t otal hemoglobin ratio (mass fraction)Ordered By: Dionisio Washington on 11-21-2022 HbA1c (Bld) [Mass fraction] 6.3 % 3.8-5.6 [facility] Comment on above: Normal < 5.7 % Predi abetic 5.7 - 6.4 % Diabetic >or= 6.5 % Please note range changes. HEPATITIS B SURFACE AB QUAL [CCL]on 02-08-2021 HepB Surface Ab,Qual Positive Abnormal NEGAT [facility] Comment on above: Result Comment: Thes e results are consistent with previous exposure and/or immunity to the hepatitis B virus antigen. [facility] [address] [place] [address] Jamarcus Kelley III, M.D. [id number] Performed By: #### 2 50447 #### [facility],[address] [place] [address] HEPATITIS C AB IA [CCL]on Hepatitis C Ab IA Negative Normal NEGAT [facility] Comment on above: Result Comment: [facility] [address] [place] [address] Jamarcus Kelley III, M.D. [id number] Performed By: #### 2 52440 #### [facility],[address] [place] [address] HepB Surface Ab,Qualon 02-08 HepB Surface Ab,Qual Positive Abnormal Negative [facility] Comment on above: Performed By: #### A HBSAG, AHCV #### [facility] Routine Lab [address] [place] [address] Hepatitis C Ab IAon 02-09-20 Hepatitis C Ab IA NEGAT Normal Negative [facility] Comment on above: Performed By: #### A HBSAG, AHCV #### [facility] [address] [place], [place] [address] GC/CHLAM AMPLIFICATION URINE [CCL]on 01-26-2021 Chlamydia Amplif, Ur Negative Normal [facility] Comment on above: Result Comment: [facility] [address] [place] [address] Jamarcus Kelley III, M.D. [id number] Performed By: #### 2 54388 #### [facility],[address] [place] [address] UGCAMP Negative Normal [facility] Comment on above: Performed By: #### 2 09335 #### [facility],[address] [place] [address] GC/Chlamydia Amp, Uron 01-26 Chlamydia Amplif, Ur CLNEG Normal [facility] Comment on above: Performed By: #### U GCCT #### [facility] [address] [place], [place] [id number] GC Amplification, Ur NGNEG Normal [facility] Comment on above: Performed By: #### U GCCT #### [facility] Routine Lab [facility] [place] [address] RPRon 01-25-2021 Reagin Ab RPR Ql (S) NR Normal Non Reactive Cl [facility] Comment on above: Performed By: #### R MI #### [facility] Immunology [address] [place] [address] RPR [CCL]on 01-25-2021 Reagin Ab RPR Ql (S) Non-Reactive Normal NR [facility] Comment on above: Result Comment: [address] [address] Jamarcus Kelley III, M.D. [id number] Performed By: #### 2 04376 #### [address] [address] HGB A1C [CCL]on 01-04-2021 Glucose [Mass/Vol] 120 mg/dL Normal [facility] Comment on above: Result Comment: eAG: (Estimated average glucose) is a calculated value from HgbA1c and is auto service representative of the average blood glucose level in the last 2-3 month period. [address] [place] [address] Jamarcus Kelley III, M.D. [id number] Performed By: #### 2 83053 #### [facility],[address] [place] [address] HbA1c (Bld) [Mass fraction] 5.8 % High 4.3-5.6 [facility] Comment on above: Result Comment: [facility] Diabetes Association guidelines indicate that patients with HgbA1c in the range 5.7-6.4% are at increased risk for development of diabetes, and intervention by lifestyle modification may be beneficial. HgbA1c greater or equal to 6.5% is considered diagnostic of diabetes. Performed By: #### 2 50888 #### [facility],[address] [place] [address] Hemoglobin A1con 01-04-2021 Glucose [Mass/Vol] 120 mg/dL Normal [facility] Comment on above: Performed By: #### H BA1C #### [facility] Routine Lab [address] [place], [place] [address] HbA1c (Bld) [Mass fraction] 5.8 % High 4.3-5.6 [facility] Comment on above: Performed By: #### H BA1C #### [facility]ine Lab [address] [place], [place] [address] GLUCOSEon 01-02-2021 Glucose [Mass/Vol] 108 mg/dL High 74 - 106 [facility] Comment on above: Performed By: #### 2 65329 #### [facility],[address] [place] [address] LIPID PROFILEon 01-02-2021 Cholesterol [Mass/Vol] 194 mg/dL Normal 0 - 240 [facility] Comment on above: Performed By: #### 2 65279 #### [facility],[address] [place] [address] Cholesterol in HDL [Mass/Vol] 34 mg/dL Low 40 - 60 [facility] Comment on above: Performed By: #### 2 75044 #### [facility],[address] [place] [address] Cholesterol in LDL [Mass/Vol] 98 mg/dL Normal 0 - 129 [facility] Comment on above: Performed By: #### 2 19145 #### [facility],[address] [place] [address] Cholesterol.total/Mariela sterol in HDL [Mass ratio] 5.7 {ratio} High 0.0 - 5.0 [facility] Comment on above: Performed By: #### 2 91101 #### [facility],[address] [place] [address] Lipid 1996 panel Normal [facility] Comment on above: Result Comment: LIPI D PROFILE Performed By: #### 2 20012 #### [facility],[address] [place] [address] Triglyceride [Mass/Vol] 311 mg/dL High 0 - 150 [facility] Comment on above: Performed By: #### 2 71151 #### [facility],[address] [place] [address] TSHon 01-02-2021 TSH Qn 1.08 m[IU]/L Normal 0.35 - 3.74 [facility] Comment on above: Performed By: #### 2 43393 #### [facility],[address] [place] [address] GLUon 07-13-2019 Glucose [Mass/Vol] 115 mg/dL High 70-105 [facility] ([place]) Comment on above: Performed By: #### G JEAN-CLAUDE, LIPID #### [address] [address] LIPIDon 07-13-2019 Cholesterol [Mass/Vol] 203 mg/dL High 0-200 [facility] ([place]) Comment on above: Result Comment: Chol esterol Reference Interval: Less than 200 Desirable 200-239 Borderline high risk 240 and above High risk Performed By: #### G JEAN-CLAUDE, LIPID #### [address] [address] Cholesterol in HDL [Mass/Vol] 34 mg/dL Low 40-60 [facility] ([place]) Comment on above: Performed By: #### G JEAN-CLAUDE, LIPID #### [address] [address] Cholesterol in LDL [Mass/Vol] Not Valid Normal 0-130 [facility] ([place]) Comment on above: Result Comment: Trig lyceride >400 invalidates the calculated LDL. Performed By: #### G JEAN-CLAUDE, LIPID #### [facility] [address] [place] [address] Triglyceride [Mass/Vol] 455 mg/dL High 0-150 [facility] ([place]) Comment on above: Result Comment: Trig lyceride Reference Interval: Less than 150 Normal 150-199 Borderline high risk 200-499 High risk 500 or higher Very high risk Performed By: #### G JEAN-CLAUDE, LIPID #### [facility] [address] [place] [address] Encounters Encounter Date Encounter Type Care Provider Facility Start: 11-14-2024 End: 11-14-[address] Dionisio Washington DO Work Phone: -Laboratory Kyle Harris [facility] Start: 11-14-2024 End: 11-14-[address] Dionisio Washington DO -Laboratory Kyle Harris [facility] Start: 11-14-2024 End: 11-14-2024 ambulatory [facility] Facility:[facility] Start: 03-05-2024 Encounter for genera l adult medical examination without abnormal findings [facility] Start: 02-09-2024 End: 02-09-2024 ambulatory [facility] Facility:[facility] Start: 11-21-2022 End: 11-21-2022 ambulatory [facility] Work Phone: Start: 11-21-2022 End: 11-21-2022 Patient encounter procedure [facility]-Laboratory, Carlton Famly [facility] Start: 02-05-2021 End: 02-05-2021 ambulatory AUGUSTINA AMBROSIO [facility] Start: 01-02-2021 End: 01-02-2021 ambulatory CHER HAIDER SAMMY [facility] Procedures Date Procedure Procedure Detail Performing Clinician Start: 11-14-2024 Insulin C-peptide measurement Dr. Dionisio Washington DO Work Phone: Comment on above: C-Peptide reference interval is for fasting patients.[facility]formed at[facility] [place], [place] [id number] Director: Paulo Herman PhD, Phone: [phone] Start: 11-14-[address] Dionisio olivares DO Work Phone: Comment on above: Test Ordered: [id number] Antipancreatic Islet CellsAntipancreatic Islet Cells Negative BN Reference Range: Neg:<1:1Performed at: [address] [id number] Director: Pratibha Fox MD, Phone: [phone] at: [facility] [id number] Director: Paulo Herman PhD, Phone: [phone] Start: 11-14-2024 Urine microalbumin/c reatinine ratio measurement Dr. Dionisio Washington DO Work Phone: Payers Date Payer Category Payer Unknown [id number] 2024 Self-pay [id number] 2024 Unknown [id number] 1986 Unknown [id number] [id number] [id number] 1986 Unknown [id number] [id number] [id number] Private Health Insurance [id number] Self-pay [id number] Unknown [id number] [id number] [id number] Unknown [id number] 2.16.8 [id number] Social History Date Type Detail [facility] Work Phone: Start: 1985 Sex Assigned At Male [facility] Work Phone: Evaluation note Note Date & Type Note Facility Evaluation note No assessment information availa ble [facility] Work Phone: Reason for referral (narrative) Note Date & Type Note Facility Reason for referral (narrative) No reason for referral information available [facility] Work Phone: Summary Purpose Family History No Family History Records FoundNo Family History Records FoundNo Family History Records FoundNo Family History Records Found Advance Directives No Advanced Directives Records FoundNo Advanced Directives Records FoundNo Advanced Directives Records FoundNo Advanced Directives Records Found Additional Source Comments (unrecognized sect ion and content) No Status Records FoundNo Status Records FoundNo Status Records FoundNo Status Records Found INFORMATION SOURCE (unrecogn ized section and content) DATE CREATED AUTHOR 07/13/2019 [facility] ([place]) DATE CREATED AUTHOR AUTHOR'S ORGANIZ ATION 02/09/2021 [facility] DATE CREATED AUTHOR AUTHOR'S ORGANIZ ATION 02/09/2021 [facility] DATE CREATED AUTHOR AUTHOR'S ORGANIZ ATION 11/19/2024 [facility] Care Teams (unrecognized sec tion and content) Team Status: Active Member Role Status Dates Dr. Dionisio Washington DO Primary Care Provider Active Team Status: Inactive Member Role Status Dates Dr. Dionisio Washington DO Primary Care Prov ider, Attending Provider, Referring Provider Active Team Status: Active Member Role/Relationship Status Dates Dr. Dionisio Washington DO Primary Care Provider Active Team Status: Inactive Member Role/Relationship Status Dates Dr. Dionisio Washington DO Primary Care Provider Active Start: November 14, 2024 End: November 14, 2024 Dr. Dionisio Washington DO Attending Provider Active Start: November 14, 2024 End: November 14, 2024 Dr. Dionisio Washington DO Referring Provider Active Start: November 14, 2024 End: November 14, 2024 Goals (unrecognized section and content) Goals may be documented in a n alternate sectionGoals may be documented in an alternate section FOR RECORDS PERTAINING TO PATIENTS WHO ARE OR HAVE BEEN ENROLLED IN A CHEMICAL DEPENDENCY/SUBSTANCEABUSE PROGRAM, SOME INFORMATION MAY BE OMITTED. This clinical summary was aggregated from multiple sources. Caution should be exercised in using it in the provision of clinical care. This summary normalizes information from multiple sources, and as a consequence, information in this document may materially change the coding, format and clinical context of patient data. In addition, data may be omitted in some cases. CLINICAL DECISIONS SHOULD BE BASED ON THE PRIMARY CLINICAL RECORDS. [facility]. provides no warranty or guarantee of the accuracy or completeness of information in this document.
== END 2024-11-30 19:11 | disposition home or self-care (01) ==
PROVIDERS: Emergency Provider Emergency Medicine; PCP Family Medicine; Visit Provider Emergency Medicine
DX: S56.211A Strain of other flexor muscle, fascia and tendon at forearm level, right arm, initial encounter (principal); X58.XXXA Exposure to other specified factors, initial encounter; Z87.891 Personal history of nicotine dependence
CPT/HCPCS: 73080; 96372; 99283

== ENCOUNTER → 2024-12-17 | Outpatient (CLI) | payer BC, SELFPAY ==
--- NOTE | 2024-12-17 13:00 | CT_ITS ---
PROCEDURE: EXTREMITY UPPER WITHOUT CONTRA 12/17/2024 REASON FOR EXAM: PAIN IN RIGHT ELBOW TECHNIQUE: EXTREMITY UPPER WITHOUT CONTRA Coronal and Sagittal reconstruction series were provided. One or more dose reduction techniques were used (e.g., Automated exposure control, adjustment of the mA and/or kV according to patient size, use of iterative reconstruction technique. RADIATION DOSE SUMMARY: DLP: 548 mGycm COMPARISON: November 30, 2024 x-ray FINDINGS: Bones: There is a 0.3 x 0.2 cm osteochondral fragment at the anterior lateral margin of the coronoid process of the ulna, sagittal image 24/45. There is no other evidence of fracture in the ulna, radius, or distal humerus. There is no visible joint effusion. Adjacent soft tissues are unremarkable. There is no visible atherosclerosis. Mineralization is normal. The joint spaces are maintained. CT/Extremity Upper without Contra IMPRESSION: There is a 0.3 x 0.2 cm osteochondral fragment at the anterior lateral margin o f the coronoid process of the ulna, sagittal image 24/45. MRI correlation could be helpful for further characterization if there is clinical suspicion of acute injury. Reading Location: [facility]
== END | disposition home or self-care (01) ==
LOC: CT 12:55
PROVIDERS: PCP Family Medicine
DX: M24.021 Loose body in right elbow (principal); M25.521 Pain in right elbow
CPT/HCPCS: 73200